=== PATIENT | female | born 1960 | race Caucasian/White ===

== ENCOUNTER 2017-05-04 10:23 | Observation (INO) ==
[2017-05-04] MEDS ORDERED: Aspirin 81 MG TAB.CHEW PO STA (10:34)
[2017-05-04] MEDS: Nitroglycerin 0.4 MG TAB.SUBL SL PRN ×3 (10:50→11:03)
[2017-05-04 10:56] LABS: Basophils # 0.1 K/mcL (0.0-0.2); Eosinophils # 0.1 K/mcL (0.0-0.6); Eosinophils % 1.2 %; Hematocrit 41.6 % (35.3-44.9); Immature Granulocytes % 0.1 % (0-4); Lymphocytes # 3.1 K/mcL (0.6-4.6); Lymphocytes % 44.5 %; Mean Corpuscular HGB Conc 33.7 g/dL (31.6-35.5); Mean Corpuscular Hemoglobin 29.4 pg (28.0-33.3); Mean Corpuscular Volume 87.4 fL (83.0-100.0); Mean Platelet Volume 10.2 fL (9.4-12.4); Monocytes # 0.7 K/mcL (0.0-1.3); Monocytes % 9.4 %; Platelet Count 321 K/mcL (140-400); Red Blood Count 4.76 M/mcL (3.82-4.97); Red Cell Distribution Width 12.6 % (11.5-14.5); Segmented Neutrophils % 43.8 %
[2017-05-04 11:00] LABS: Prothrombin Time 10.4 Seconds (9.4-12.1)
[2017-05-04 11:03] LABS: Activated Partial Thrombo Time 31.6 Seconds (26.0-36.0)
[2017-05-04 11:07] LABS: BUN/Creatinine Ratio 19 (6-26); Blood Urea Nitrogen 15 mg/dL (7-20); Calcium 10.4 mg/dL (8.6-10.8); Carbon Dioxide 26 mEq/L (19-29); Chloride 102 mEq/L (98-109); Glucose 98 mg/dL (70-99); Osmolality,Calculated 287 (280-300); Potassium 3.5 mEq/L (3.5-4.5); Sodium 138 mEq/L (136-145); eGFR For African Americans > 60 (> 60); eGFR For Non-African Americans > 60 (> 60)
--- NOTE | 2017-05-04 11:44 | Emergency Department Note ---
Disposition Clinical Impression: Chest pain Qualifiers: Chest pain type: unspecified Qualified Code(s): R07.9 - Chest pain, unspecified Disposition: Admitted As Inpatient Chest Pain HPI - General Chief Complaint: ED Chest Pain Stated Complaint: CP Time Seen by Provider: 05/04/17 10:29 Source: patient Limitations: no limitations Vital Signs Reviewed: Yes Nursing Notes Reviewed: Yes - History of Present Illness HPI Narrative: Patient with past medical history of hypertension hyperlipidemia and TIA presents for evaluation of chest pain. Chest pain started 20 minutes prior to arrival. Patient describes chest pain is in the center of her chest and a pressure. Patient states that she took nitroglycerin at home with her for relief. Patient states she has nitroglycerin from previous TIA. She states that she has not had previous heart attack. Patient did fail a stress test 3 years ago and received cardiac catheter without receiving a stent. Unknown amount of cardiac disease. Patient has associated shortness of breath no diaphoresis or nausea. Severity scale (1-10): 6 - Related Data Home Medications Medication Instructions Recorded Confirmed Cranberry 400 mg PO DAILY 04/20/16 05/04/17 Losartan/Hydrochlorothiazide 1 each PO DAILY 04/20/16 05/04/17 [Hyzaar 100-25 Tablet] Omeprazole [PriLOSEC] 40 mg PO DAILY 04/20/16 05/04/17 Aspirin 325 mg PO DAILY 11/17/16 05/04/17 Cyclobenzaprine HCl 5 mg PO HS PRN 11/17/16 05/04/17 Ranitidine HCl [Heartburn Relief] 150 mg PO DAILY 01/20/17 05/04/17 Allergies Allergy/AdvReac Type Severity Reaction Status Date / Time codeine AdvReac Rash Verified 05/04/17 12:07 metronidazole [From Flagyl] AdvReac Rash Verified 05/04/17 12:07 Sulfa (Sulfonamide AdvReac See Verified 05/04/17 12:07 Antibiotics) Comments Review of Systems: CONSTITUTIONAL: No weight loss, fever, chills, weakness or fatigue. HEENT: Eyes: No visual changes. Ears, Nose, Throat: No hearing loss, difficulty talking or unable to swallow. SKIN: No rash or itching. CARDIOVASCULAR: Chest pain RESPIRATORY: Shortness of breath No cough or sputum. GASTROINTESTINAL: No anorexia, nausea, vomiting or diarrhea. No abdominal pain or blood. GENITOURINARY: No burning on urination or hematuria. NEUROLOGICAL: No headache, dizziness, syncope, paralysis, ataxia, numbness or tingling in the extremities. No change in bowel or bladder control. MUSCULOSKELETAL: No muscle pain, back pain, joint pain or stiffness. Chest Pain PMH - Past Medical History Medical history: Reports: CVA, GERD, hyperlipidemia, hypertension, TIA, other Surgical history: Reports: angioplasty/stent, appendectomy, cholecystectomy, colectomy, other Psychiatric history: Reports: no psych history - Social History Smoking Status: Never smoker Alcohol use: Reports: none Drug use: Reports: none Physical Exam General appearance: NAD, conversant Eyes: anicteric sclerae, moist conjunctivae; PERRL HENT: Atraumatic; oropharynx clear with moist mucous membranes and no mucosal ulcerations Neck: Normal inspection; Trachea midline; FROM, supple Lungs: CTA, with normal respiratory effort and no intercostal retractions CV: RRR, no MRGs Abdomen: Soft, non-tender; no rebound or gaurding Extremities: No peripheral edema or extremity lymphadenopathy Skin: Normal temperature; no rash, ulcers or lesions Psych: Appropriate mood and affect Neuro: alert and oriented to person, place and time - General Limitations: no limitations General appearance: alert Course - Reevaluation(s) Reevaluation #1: Patient's chest pain improved from a 7 to 2 with nitroglycerin. Patient will be admitted for further observation and serial troponin and cardiac testing. Reevaluation #2: After admission to the hospitalist service. The patient is been complaining of worsening pain. She describes a sharp pain in her chest. Patient is uncomfortable on the cot and will undergo a dissection study. I have called the radiologist to try to get a PE as well as dissection study. They will do their best. D-dimer negative. - Consultations Consultation #1: Discussed with the hospitalist. Patient accepted for admission. Vital Signs Temperature 98.0 F 05/04/17 10:25 Pulse Rate 86 05/04/17 10:25 Respiratory Rate 14 05/04/17 10:25 Blood Pressure 143/82 05/04/17 10:25 O2 Sat by Pulse Oximetry 97 05/04/17 10:25 Temperature 98.0 F 05/04/17 10:25 Pulse Rate 70 05/04/17 14:48 Respiratory Rate 16 05/04/17 14:48 Blood Pressure 99/63 05/04/17 14:48 O2 Sat by Pulse Oximetry 99 05/04/17 14:48 Oxygen Delivery Oxygen Delivery Room Air Chest Pain - Medical Records Medical records reviewed: Yes I reviewed the patient's medical records. - Lab Data Lab results reviewed: Yes I reviewed the patient's lab results. Result diagrams: 05/04/17 10:44 05/04/17 10:44 Lab Results 05/04/17 05/04/17 05/04/17 Range/Units 10:44 10:44 10:44 WBC 6.9 (4.3-11.1) K/mcL RBC 4.76 (3.82-4.97) M/mcL Hgb 14.0 (11.5-15.4) g/dL Hct 41.6 (35.3-44.9) % MCV 87.4 (83.0-100.0) fL MCH 29.4 (28.0-33.3) pg MCHC 33.7 (31.6-35.5) g/dL RDW 12.6 (11.5-14.5) % Plt Count 321 (140-400) K/mcL MPV 10.2 (9.4-12.4) fL Immature Gran % 0.1 (0-4) % Seg Neutrophils % 43.8 % Lymphocytes % 44.5 % Monocytes % 9.4 % Eosinophils % 1.2 % Basophils % 1.0 % Neutrophils # 3.0 (1.6-8.9) K/mcL Lymphocytes # 3.1 (0.6-4.6) K/mcL Monocytes # 0.7 (0.0-1.3) K/mcL Eosinophils # 0.1 (0.0-0.6) K/mcL Basophils # 0.1 (0.0-0.2) K/mcL PT (9.4-12.1) Seconds INR APTT (26.0-36.0) Seconds D-Dimer (0-500) ng/mLFEU Sodium 138 (136-145) mEq/L Potassium 3.5 (3.5-4.5) mEq/L Chloride 102 (98-109) mEq/L Carbon Dioxide 26 (19-29) mEq/L BUN 15 (7-20) mg/dL Creatinine 0.81 (0.57-1.11) mg/dL Est GFR ( Amer) > 60 (> 60) Est GFR (Non-Af Amer) > 60 (> 60) BUN/Creatinine Ratio 19 (6-26) Glucose 98 (70-99) mg/dL Calculated Osmolality 287 (280-300) Calcium 10.4 (8.6-10.8) mg/dL Troponin I 0.00 (0-0.03) ng/mL Triglycerides (< 150) mg/dL Cholesterol (< 200) mg/dL LDL Cholesterol, Calc (0-99) mg/dL VLDL Cholesterol, Calc (< 31) mg/dL HDL Cholesterol (40-59) mg/dL Cholesterol/HDL Ratio (0-4.9) 05/04/17 05/04/17 05/04/17 Range/Units 10:44 13:06 13:06 WBC (4.3-11.1) K/mcL RBC (3.82-4.97) M/mcL Hgb (11.5-15.4) g/dL Hct (35.3-44.9) % MCV (83.0-100.0) fL MCH (28.0-33.3) pg MCHC (31.6-35.5) g/dL RDW (11.5-14.5) % Plt Count (140-400) K/mcL MPV (9.4-12.4) fL Immature Gran % (0-4) % Seg Neutrophils % % Lymphocytes % % Monocytes % % Eosinophils % % Basophils % % Neutrophils # (1.6-8.9) K/mcL Lymphocytes # (0.6-4.6) K/mcL Monocytes # (0.0-1.3) K/mcL Eosinophils # (0.0-0.6) K/mcL Basophils # (0.0-0.2) K/mcL PT 10.4 (9.4-12.1) Seconds INR 1.0 APTT 31.6 (26.0-36.0) Seconds D-Dimer < 215 (0-500) ng/mLFEU Sodium (136-145) mEq/L Potassium (3.5-4.5) mEq/L Chloride (98-109) mEq/L Carbon Dioxide (19-29) mEq/L BUN (7-20) mg/dL Creatinine (0.57-1.11) mg/dL Est GFR ( Amer) (> 60) Est GFR (Non-Af Amer) (> 60) BUN/Creatinine Ratio (6-26) Glucose (70-99) mg/dL Calculated Osmolality (280-300) Calcium (8.6-10.8) mg/dL Troponin I (0-0.03) ng/mL Triglycerides 302 H (< 150) mg/dL Cholesterol 311 H (< 200) mg/dL LDL Cholesterol, Calc 203 H (0-99) mg/dL VLDL Cholesterol, Calc 60 H (< 31) mg/dL HDL Cholesterol 48 (40-59) mg/dL Cholesterol/HDL Ratio 6.5 H (0-4.9) - Radiology Data Radiology results reviewed: Yes I reviewed the patient's radiology results. - EKG Data EKG attestation: Yes I reviewed and interpreted this EKG. EKG results narrative: EKG shows sinus rhythm with ventricular rate of 82. IN 120. QRS 84. QTC 362. Patient has no significant ST elevation or depression. Patient has lateral lead T-wave flattening in comparison to previous EKG of 04/13/16. Attestation Statement - Attestation Attestation: I examined this patient and my medical decision-making was reviewed with the Resident Physician. I agree with the documented findings, disposition and treatment plan as described except to the extent set forth below. Patient presents to the etiology component chest pain. Onset this morning while she was at work. Radiating into her neck. She received some nitroglycerin which made her chest about a resolving pain in her neck. Examination shows her no distress with clear lungs. Heart regular rate and rhythm. Plan. EKGs with some mild nonspecific changes. Troponin is negative. Patient had worsening pain after getting some morphine. We did reevaluate her. Repeat EKG was done and was not worsened. She has no ST elevations. We sent her for dissection protocol study. There is no dissection. She has no PE. She has been discussed with cardiology who is seeing her in consult. Admitted to medicine.
[2017-05-04] MEDS ORDERED: Ondansetron 4 MG/2 ML VIAL IVP ONE (11:51)
[2017-05-04] MEDS ORDERED: *HR* Morphine 2 MG/ML SYRINGE IVP ONE ×2 (11:51→12:00)
[2017-05-04] MEDS ORDERED: Nitroglycerin 1 INCH/GM PACKET TP ONE (12:36)
[2017-05-04] MEDS ORDERED: *HR* FentaNYL (PF) 100 MCG/2 ML VIAL IVP ONE (12:43)
[2017-05-04] MEDS ORDERED: *HR* Morphine 2 MG/ML SYRINGE IVP PRN (12:50)
[2017-05-04] MEDS ORDERED: Ondansetron 4 MG/2 ML VIAL IVP PRN ×2 (12:50→15:55)
[2017-05-04] MEDS ORDERED: Naloxone 0.4 MG/ML INJ IVP PRN (12:50)
[2017-05-04] MEDS ORDERED: 0.9 % Sodium Chloride 1,000 ML IVC SCH (13:00)
--- NOTE | 2017-05-04 13:14 | Internal Med History&Physical ---
<Ridge Finch - Last Filed: 05/04/17 16:50> Date of Encounter: 05/04/17 Time of Encounter: 12:57 Assessment and Plan (1) Unstable angina Current visit: Yes Status: Acute Unstable angina which began approximately 20 minutes prior to arrival. She is continuing to endorse midsternal sharp/crushing chest pain with radiation to left jaw and left neck. Due to recurrent angina despite medical therapy she is being admitted for observation. She has multiple risk factors including aspirin use in the last 24 hours, hypertension, HLD, continued angina and family history of CAD. ANALISA score of 3 elixir at intermediate risk and she may need coronary revascularization. She remains hemodynamically stable. Consult cardiology for further recommendations regarding coronary vascularization and/or the need to start heparin drip: Consider adding statin TTE now to assess for etiology of ACS Stress test in the morning NPO now until further recommendations CTA chest now d/t continued SOB and discomfort r/o PE CT chest d/t continued SOB and discomfort r/o aortic dissection hold off on heparin gtt and nitro gtt until results of CT and CTA Continuous tele, and SPO2 monitoring CBC, BMP, in the am (2) HTN (hypertension) Current visit: Yes Status: Acute Systolic blood pressure was slightly elevated on arrival. However, at this time is currently stable. Continue to monitor, restart losartan/ hydrochlorothiazide at home dose Qualifiers: Hypertension type: essential hypertension Qualified Code(s): I10 - Essential (primary) hypertension (3) HLD (hyperlipidemia) Current visit: Yes Status: Acute History of, check lipid panel now,she is currently not taking a statin, h she would likely benefit. Cardiology is consulted regarding further recommendations. Qualifiers: Hyperlipidemia type: unspecified Qualified Code(s): E78.5 - Hyperlipidemia , unspecified Internal Medicine - H&P: HPI Chief complaint: CP R/O ACS Admitted From: Home Plans for Post Hospital Care: Home History of present illness: Ms. Goldstein is a 57 year old female with a PMH of hypertension HLD and TIA presents with a C/o Chest pain started 20 minutes prior to arrival. She describes non-exertional chest pain that is midsternal, and crushing/sharp with radiation to the left neck and left jaw. Pain is scored 6/10. She also states that she is short of breath. She took a nitro at home and reports relief but the CP has returned. While in the ED she was given SL nitro and morphine with relief, but as of this assessment the CP has returned and is again /. EGK show no ST elevation or t-wave inversions. No prior h/o DE. She denies diaphoresis or nausea as well as extremity pain or swelling. Last workup was in 2013 and included a LHC revealing at that time, minimal 1 vessel disease and a TTE with EF 60% and no wall motion abnormalities. D/t unstable angina she is being admitted for further workup and monitoring. Past Med Surg Social Fam HX - Past Medical History Medical history: CVA, GERD, hyperlipidemia, hypertension, TIA, other Psychiatric history: no psych history - Past Surgical History Surgical History: angioplasty/stent, appendectomy, cholecystectomy, colectomy, other - Social History Smoking Status: Never smoker Smokeless Tobacco Status: No Alcohol use: none Drug use: none Internal Medicine - H&P: Meds Cranberry 400 mg PO DAILY 04/20/16 [History] Losartan/Hydrochlorothiazide [Hyzaar 100-25 Tablet] 1 each PO DAILY 04/20/16 [ History] Omeprazole [PriLOSEC] 40 mg PO DAILY 04/20/16 [History] Aspirin 325 mg PO DAILY 11/17/16 [History] Cyclobenzaprine HCl 5 mg PO HS PRN 11/17/16 [History] Ranitidine HCl [Heartburn Relief] 150 mg PO DAILY 01/20/17 [History] 3 Allergy/AdvReac Type Severity Reaction Status Date / Time codeine AdvReac Rash Verified 05/04/17 12:07 metronidazole [From Flagyl] AdvReac Rash Verified 05/04/17 12:07 Sulfa (Sulfonamide AdvReac See Verified 05/04/17 12:07 Antibiotics) Comments All Systems PM: A 10-system review of systems was performed and is negative for pertinent findings except as documented above in the HPI. - Constitutional Constitutional: no chills, no excessive sweating, no fatigue, no fever(s), no weight gain - Cardiovascular Cardiovascular ROS IM: chest pain, dyspnea, dyspnea on exertion, no diaphoresis , no edema, no irregular heart rhythm, no lightheadedness, no orthopnea, no palpitations, no syncope - Respiratory Respiratory: dyspnea, dyspnea on exertion, no cough, no hemoptysis, no wheezing , no pain on inspiration, no chest congestion, no pain with cough - Gastrointestinal Gastrointestinal: no abdominal pain, no diarrhea, no hematemesis, no hematochezia, no melena, no nausea, no vomiting - Genitourinary Genitourinary: no change in urinary stream, no dysuria, no flank pain, no hematuria - Musculoskeletal Musculoskeletal ROS IM: no numbness, no tingling - Integumentary Integumentary IM: no rash, no unusual bruising - Neurological Neurological ROS: no confusion, no convulsions, no focal weakness, no numbness, no tingling, no tremor(s) - Constitutional Vitals: Temp Pulse Resp BP Pulse Ox 98.0 F 94 20 134/67 98 05/04/17 10:25 05/04/17 12:45 05/04/17 12:45 05/04/17 12:45 05/04/17 12:45 General appearance: Present: cooperative, mild distress, A&O X 3, answers questions appropriately - Head Head exam: Present: atraumatic, normocephalic - Neck Neck exam general surgery: Present: supple, trachea midline. Absent: lymphadenopathy - Respiratory Respiratory exam: Present: CTAB. Absent: accessory muscle use, rales, rhonchi, wheezes - Cardiovascular Cardiovascular exam: Present: RRR, +S1, +S2. Absent: diastolic murmur, gallop, rubs, systolic murmur - GI/Abdominal GI/Abdominal exam: Present: normal bowel sounds, soft, no peritoneal signs. Absent: distended, tenderness - Extremities Exam Extremities exam: Present: warm, radial pulses palpable and symmetrical. Absent : calf tenderness, cyanotic, pedal edema - Neurological Exam Neurological exam: Present: oriented X3. Absent: pronater drift, facial droop, speech deficit - Skin Skin exam: Present: dry, intact Internal Med - H&P Results - Labs CBC & Chem 7: 05/04/17 10:44 05/04/17 10:44 - EKG Data -: EKG Interpreted by Myself EKG shows normal: sinus rhythm Rate: normal - EKG Data Prior EKG available for review: yes When compared to previous EKG: there is no significant change Interpretation IM: normal EKG EKG comments: 05/04/17 13:17 NSR - Diagnostic Studies Chest x-ray Status: image reviewed by me Additional comments: no acute cardiopulmonary process <[email or web address] cohen - Last Filed: 05/05/17 07:39> Date of Encounter: 05/04/17 Internal Medicine - H&P: HPI History of present illness: Ms. Goldstein is a 57 year old female All Systems PM: A 10-system review of systems was performed and is negative for pertinent findings except as documented above in the HPI. - Constitutional Vitals: Temp Pulse Resp BP Pulse Ox 98.0 F 70 16 107/68 97 05/05/17 06:32 05/05/17 06:32 05/05/17 06:32 05/05/17 06:32 05/05/17 06:32 Internal Med - H&P Results - Labs CBC & Chem 7: 05/05/17 04:14 05/05/17 04:14 Labs: Short CBC 05/05/17 Range/Units 04:14 WBC 8.1 (4.3-11.1) K/mcL Hgb 11.5 D (11.5-15.4) g/dL Hct 34.6 L (35.3-44.9) % Plt Count 260 (140-400) K/mcL Neutrophils # 4.3 (1.6-8.9) K/mcL BMP 05/05/17 04:14 Sodium 139 Potassium 3.5 Chloride 104 Carbon Dioxide 26 BUN 10 Creatinine 0.72 Glucose 101 H Calcium 9.3 Cardiac Enzymes 05/04/17 05/04/17 Range/Units 16:19 21:49 Troponin I 0.00 0.01 (0-0.03) ng/mL - Impressions ITS Impressions Chest CTA 05/04/17 13:23 IMPRESSION: Unremarkable CTA of the chest, abdomen and pelvis. No evidence of aortic aneurysm or dissection. No significant atherosclerotic disease. No evidence of pulmonary embolism. No acute process in the chest. No acute abnormality in the abdomen or pelvis. No evidence of acute bowel abnormality or bowel obstruction. Diverticulosis without evidence of acute diverticulitis. D/ / 05/04/2017 14:50:33 Selvin Reece MD / nicole Interpreting Provider: Selvin Reece MD Abdomen/Pelvis CTA 05/04/17 13:24 IMPRESSION: Unremarkable CTA of the chest, abdomen and pelvis. No evidence of aortic aneurysm or dissection. No significant atherosclerotic disease. No evidence of pulmonary embolism. No acute process in the chest. No acute abnormality in the abdomen or pelvis. No evidence of acute bowel abnormality or bowel obstruction. Diverticulosis without evidence of acute diverticulitis. D/ / 05/04/2017 14:50:33 Selvin Reece MD / nicole Interpreting Provider: Selvin Reece MD - Attending Attestation 57y/o F who presented with chest pain which seemed to be cardiac in nature. Initiate treatment per ACS guidelines. Will consult cardio for further recommendations. We will resume home meds as deemed appropriated. I have examined patient and agree with RADIATION PHYSICIST documentation.
[2017-05-04 13:28] LABS: Chol/HDL Ratio 6.5 (0-4.9)
--- NOTE | 2017-05-04 15:20 | Cardiology Consult Note ---
Date of Encounter: 05/04/17 Time of Encounter: 15:00 Assessment and Plan (1) Chest pain Current Visit: Yes Status: Acute Per cardiology: -Presented with chest pain while walking/workiing. -Reports associated shortness of breath and diaphoresis. -Reports increased fatigue over the past couple of weeks. -Has been having intermittent chest pain for the past few months, releived with nitro. -Admits to current 2/10 chest heaviness. -Troponin negative x1. -ECG with SR, non-specific ST changes. -LHC 2013 with 20% mid RCA stenosis, otherwise all other arteries angiographically free of disease. -TTE 2013 with LVEF 60%, no segmental wall motion abnormalities. -Stress echo 2013 negative. -Will trend troponins. -Will make NPO after midnight for possible stress test in am. -WIll start statin and beta saroj. Of note, patient take ASA 325mg for history of CVA. Qualifiers: Chest pain type: unspecified Qualified Code(s): R07.9 - Chest pain, unspecified Discussion w patient/family: The assessment and plan as outlined above was discussed with the patient and/or family members who expressed understanding and agreement. All questions were answered. Thank you for involving us in the care of your patient. Please call with any questions. Discussed and reviewed with . History of Present Illness Consult date: 05/04/17 Requesting physician: Ridge Finch Consult reason: chest pain Chief complaint: chest pain History of present illness: Ms. Goldstein is a 57 year old female with a relevant past medical history of CVA 2008, HTN, GERD. Patient presented to [facility] with complaints of chest pain. Patient states that she was at work, walking when she had sudden onset of midsternal chest pain that radiated to bilateral jaws. Patient reports associated shortness of breath and diaphoresis. Patient denies aggravating factors. Reports pain lessened with nitro. Patient reports over the past few months, has had intermittent exertional chest pain that has been relieved by nitro. Patient states the most nitro she has had to take at home has been 2, prior to this episode. Patient reports has been more fatigued over the past couple of weeks also. States is able to do her normal activties, just is more tired after. Reports has been excercising by going to [employer] and has had intermittent chest pain at [facility]. Past Med Surg Social Fam HX - Past Medical History Attestation: Yes The following information was validated with the patient. Source: patient, old records reviewed, obtained from family Medical history: CVA, GERD, hyperlipidemia, hypertension, TIA, other Psychiatric history: no psych history - Past Surgical History Surgical History: angioplasty/stent, appendectomy, cholecystectomy, colectomy, other - Social History Smoking Status: Never smoker Smokeless Tobacco Status: No Alcohol use: none Drug use: none Medications and Allergies Cranberry 400 mg PO DAILY 04/20/16 [History] Losartan/Hydrochlorothiazide [Hyzaar 100-25 Tablet] 1 each PO DAILY 04/20/16 [ History] Omeprazole [PriLOSEC] 40 mg PO DAILY 04/20/16 [History] Aspirin 325 mg PO DAILY 11/17/16 [History] Cyclobenzaprine HCl 5 mg PO HS PRN 11/17/16 [History] Ranitidine HCl [Heartburn Relief] 150 mg PO DAILY 01/20/17 [History] 3 Allergy/AdvReac Type Severity Reaction Status Date / Time codeine AdvReac Rash Verified 05/04/17 12:07 metronidazole [From Flagyl] AdvReac Rash Verified 05/04/17 12:07 Sulfa (Sulfonamide AdvReac See Verified 05/04/17 12:07 Antibiotics) Comments All Systems Review: A 10-system review of systems was performed and is negative for pertinent findings except as documented above in the HPI. - Constitutional Constitutional: fatigue - Cardiovascular Cardiovascular: chest pain with exertion, dyspnea on exertion Physical Examination Vital Signs, Last 4 Hours Temp Pulse Resp BP Pulse Ox 05/04/17 15:17 97.1 F L 70 16 106/60 97 05/04/17 14:48 70 16 99/63 99 05/04/17 13:47 82 20 124/67 98 General: Conversant, No Apparent Distress HEENT: Atraumatic, Normocephaly, Mucus Membranes Moist Neck: No JVD, Normal carotid pulses Cardiac: Reg Rate and Rhythm, Normal S1 and S2, No Murmur Lungs: Normal Breath Sounds, No Wheeze, Rales, Rhonchi Neuro: Alert and responsive, No focal deficits noted Abdomen: Soft, Non-Tender Skin: No rashes noted on visualized skin Musculoskeletal: No Chest Wall Tenderness Extremities: No Clubbing, No Cyanosis, No Edema, Normal Pulses Results 05/04/17 10:44 05/04/17 10:44 Lab Results Impressions Chest X-Ray 05/04/17 10:29 IMPRESSION: No acute cardiopulmonary disease. D/ / Viola Rinaldi MD / Viola Rinaldi MD Interpreting Provider: Viola Rinaldi MD Chest CTA 05/04/17 13:23 IMPRESSION: Unremarkable CTA of the chest, abdomen and pelvis. No evidence of aortic aneurysm or dissection. No significant atherosclerotic disease. No evidence of pulmonary embolism. No acute process in the chest. No acute abnormality in the abdomen or pelvis. No evidence of acute bowel abnormality or bowel obstruction. Diverticulosis without evidence of acute diverticulitis. D/ / 05/04/2017 14:50:33 Selvin Reece MD / nicole Interpreting Provider: Selvin Reece MD Abdomen/Pelvis CTA 05/04/17 13:24 IMPRESSION: Unremarkable CTA of the chest, abdomen and pelvis. No evidence of aortic aneurysm or dissection. No significant atherosclerotic disease. No evidence of pulmonary embolism. No acute process in the chest. No acute abnormality in the abdomen or pelvis. No evidence of acute bowel abnormality or bowel obstruction. Diverticulosis without evidence of acute diverticulitis. D/ / 05/04/2017 14:50:33 Selvin Reece MD / nicole Interpreting Provider: Selvin Reece MD Active Medications Aspirin (Aspirin) 325 mg PO DAILY [facility] Stop: 11/04/17 09:01 Atorvastatin Calcium (Lipitor) 40 mg PO HS [facility] Stop: 11/03/17 21:01 Cyclobenzaprine HCl (Flexeril) 5 mg PO HS PRN PRN Reason: Muscle Spasm Famotidine (Pepcid) 20 mg PO 0630 [facility] Stop: 11/04/17 06:31 HCTZ/Losartan Potassium (Hyzaar 50/12.5) 2 each PO DAILY [facility] Stop: 11/04/17 09:01 Sodium Chloride (0.9 % Sodium Chloride) 1,000 mls @ 100 mls/hr IVC .Q10H [facility] Stop: 05/04/17 22:59 Last Admin: 05/04/17 15:24 Dose: 100 mls/hr Metoprolol Tartrate (Lopressor) 12.5 mg PO BID [facility] Stop: 11/03/17 21:01 Morphine Sulfate (Morphine Sulfate) 2 mg IVP Q4HR PRN PRN Reason: Chest Pain Stop: 11/03/17 12:51 Last Admin: 05/04/17 13:39 Dose: 2 mg Naloxone HCl (Narcan) 0.4 mg IVP Q2MIN PRN PRN Reason: Opioid Reversal Stop: 11/03/17 12:51 Nitroglycerin (Nitroglycerin) 0.4 mg SL Q5MIN PRN PRN Reason: Chest Pain Stop: 11/03/17 10:35 Last Admin: 05/04/17 11:03 Dose: 0.4 mg Omeprazole (Prilosec) 40 mg PO DAILY [facility] Stop: 11/04/17 09:01 Ondansetron HCl (Zofran) 4 mg IVP Q8HR PRN PRN Reason: Nausea And Vomiting Stop: 11/03/17 12:51 Laboratory Tests 05/04/17 05/04/17 05/04/17 10:44 10:44 10:44 Hgb 14.0 Creatinine 0.81 Troponin I 0.00 Triglycerides Cholesterol LDL Cholesterol, Calc HDL Cholesterol 05/04/17 13:06 Hgb Creatinine Troponin I Triglycerides 302 H Cholesterol 311 H LDL Cholesterol, Calc 203 H HDL Cholesterol 48 - Imaging and Cardiology Chest Xray: report reviewed Stress Test: report reviewed Echo: report reviewed Cardiac cath: report reviewed - EKG Interpretation EKG results cardiology: personally reviewed (ECG with SR, non-specific ST changes), other (Currently being placed on telemetry.) Consult Discharge Plan - Plan Referrals: Franny Gonzalez MD [Primary Care Provider] -
--- NOTE | 2017-05-04 15:49 | Electrocardiograph Report ---
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
[2017-05-04] MEDS: *HR* Promethazine 25 MG/ML VIAL IVP PRN (17:42)
[2017-05-04] MEDS ORDERED: Melatonin 3 MG TABLET PO PRN (21:43)
[2017-05-04] MEDS: Acetaminophen 325 MG TABLET PO PRN (22:22)
[2017-05-05 05:06] LABS: BUN/Creatinine Ratio 14 (6-26); Basophils # 0.1 K/mcL (0.0-0.2); Basophils % 0.7 %; Blood Urea Nitrogen 10 mg/dL (7-20); Calcium 9.3 mg/dL (8.6-10.8); Carbon Dioxide 26 mEq/L (19-29); Chloride 104 mEq/L (98-109); Eosinophils # 0.1 K/mcL (0.0-0.6); Eosinophils % 1.7 %; Glucose 101 mg/dL (70-99); Hematocrit 34.6 % (35.3-44.9); Immature Granulocytes % 0.2 % (0-4); Lymphocytes # 2.8 K/mcL (0.6-4.6); Lymphocytes % 34.4 %; Mean Corpuscular HGB Conc 33.2 g/dL (31.6-35.5); Mean Corpuscular Hemoglobin 29.7 pg (28.0-33.3); Mean Corpuscular Volume 89.4 fL (83.0-100.0); Monocytes # 0.8 K/mcL (0.0-1.3); Monocytes % 9.4 %; Neutrophils # 4.3 K/mcL (1.6-8.9); Osmolality,Calculated 287 (280-300); Platelet Count 260 K/mcL (140-400); Potassium 3.5 mEq/L (3.5-4.5); Red Blood Count 3.87 M/mcL (3.82-4.97); Red Cell Distribution Width 12.9 % (11.5-14.5); Segmented Neutrophils % 53.6 %; Sodium 139 mEq/L (136-145); eGFR For African Americans > 60 (> 60); eGFR For Non-African Americans > 60 (> 60)
[2017-05-05 05:07] LABS: Hemoglobin 11.5 g/dL (11.5-15.4)
[2017-05-05] MEDS: Famotidine 20 MG TABLET PO SCH (06:06)
[2017-05-05] MEDS: Aspirin 325 MG TABLET PO SCH (07:53)
--- NOTE | 2017-05-05 08:09 | Cardiology Progress Note ---
Date of Encounter: 05/05/17 Time of Encounter: 08:10 Assessment and Plan (1) Chest pain Current Visit: Yes Status: Acute Per cardiology: Presented with chest pain while walking/working. Reports associated shortness of breath and diaphoresis. Reports increased fatigue over the past couple of weeks. Has been having intermittent chest pain for the past few months, relieved with nitro. CP free now. Troponins negative x 3. Echo pending. Patient and prefer to proceed with stress test this morning. We'll proceed with exercise nuclear stress test. Further recommendations after echo and stress test. Qualifiers: Chest pain type: unspecified Qualified Code(s): R07.9 - Chest pain, unspecified (2) CAD (coronary artery disease) Current Visit: Yes Status: Chronic Per Cardiology: LHC 2013 with 20% mid RCA stenosis, otherwise all other arteries angiographically free of disease. TTE 2013 with LVEF 60%, no segmental wall motion abnormalities. Stress echo 2013 negative. On asa, statin, BB, ARB. Qualifiers: Coronary Disease-Associated Artery/Lesion type: [place] artery [place] vs. transplanted heart: [place] heart Associated angina: angina presence unspecified Qualified Code(s): I25.10 - Atherosclerotic heart disease of [place] coronary artery without angina pectoris Discussion w patient/family: The assessment and plan as outlined above was discussed with the patient and/or family members who expressed understanding and agreement. All questions were answered. Thank you for involving us in the care of your patient. Please call with any questions. Subjective Principal diagnosis: CP Interval history: Patient seen today with at bedside. Currently denies any chest pain, shortness of breath, palpitations. Denies any concerns or complaints. Objective Vital Signs, Last 4 Hours Temp Pulse Resp BP Pulse Ox 05/05/17 06:32 98.0 F 70 16 107/68 97 General: Conversant, No Apparent Distress HEENT: Atraumatic, Normocephaly, Mucus Membranes Moist Neck: No JVD, Normal carotid pulses Cardiac: Reg Rate and Rhythm, Normal S1 and S2, No Murmur Lungs: Normal Breath Sounds, No Wheeze, Rales, Rhonchi Neuro: Alert and responsive, No focal deficits noted Abdomen: Soft, Non-Tender Skin: No rashes noted on visualized skin Musculoskeletal: No Chest Wall Tenderness Extremities: No Clubbing, No Cyanosis, No Edema, Normal Pulses Results 05/05/17 04:14 12/14/17 04:14 Lab Results Laboratory Tests 05/04/17 05/04/17 05/04/17 10:44 16:19 21:49 Troponin I 0.00 0.00 0.01 Impressions Chest X-Ray 05/04/17 10:29 IMPRESSION: No acute cardiopulmonary disease. D/ / Viola Rinaldi MD / Viola Rinaldi MD Interpreting Provider: Viola Rinaldi MD Chest CTA 05/04/17 13:23 IMPRESSION: Unremarkable CTA of the chest, abdomen and pelvis. No evidence of aortic aneurysm or dissection. No significant atherosclerotic disease. No evidence of pulmonary embolism. No acute process in the chest. No acute abnormality in the abdomen or pelvis. No evidence of acute bowel abnormality or bowel obstruction. Diverticulosis without evidence of acute diverticulitis. D/ / 05/04/2017 14:50:33 Selvin Reece MD / nicole Interpreting Provider: Selvin Reece MD Abdomen/Pelvis CTA 05/04/17 13:24 IMPRESSION: Unremarkable CTA of the chest, abdomen and pelvis. No evidence of aortic aneurysm or dissection. No significant atherosclerotic disease. No evidence of pulmonary embolism. No acute process in the chest. No acute abnormality in the abdomen or pelvis. No evidence of acute bowel abnormality or bowel obstruction. Diverticulosis without evidence of acute diverticulitis. D/ / 05/04/2017 14:50:33 Selvin Reece MD / nicole Interpreting Provider: Selvin Reece MD Active Medications Acetaminophen (Tylenol) 650 mg PO Q6HR PRN PRN Reason: Headache Stop: 11/03/17 21:44 Last Admin: 05/04/17 22:22 Dose: 650 mg Aspirin (Aspirin) 325 mg PO DAILY [facility] Stop: 11/04/17 09:01 Last Admin: 05/05/17 07:53 Dose: 325 mg Atorvastatin Calcium (Lipitor) 40 mg PO HS [facility] Stop: 11/03/17 21:01 Last Admin: 05/04/17 21:28 Dose: 40 mg Cyclobenzaprine HCl (Flexeril) 5 mg PO HS PRN PRN Reason: Muscle Spasm Famotidine (Pepcid) 20 mg PO 0630 [facility] Stop: 11/04/17 06:31 Last Admin: 05/05/17 06:06 Dose: 20 mg HCTZ/Losartan Potassium (Hyzaar 50/12.5) 2 each PO DAILY [facility] Stop: 11/04/17 09:01 Last Admin: 05/05/17 07:54 Dose: 2 each Melatonin (Melatonin) 6 mg PO HS PRN PRN Reason: Insomnia Stop: 11/03/17 21:44 Last Admin: 05/04/17 22:21 Dose: 6 mg Metoprolol Tartrate (Lopressor) 12.5 mg PO BID [facility] Stop: 11/03/17 21:01 Last Admin: 05/04/17 21:28 Dose: 12.5 mg Morphine Sulfate (Morphine Sulfate) 2 mg IVP Q4HR PRN PRN Reason: Chest Pain Stop: 11/03/17 12:51 Last Admin: 05/04/17 13:39 Dose: 2 mg Naloxone HCl (Narcan) 0.4 mg IVP Q2MIN PRN PRN Reason: Opioid Reversal Stop: 11/03/17 12:51 Nitroglycerin (Nitroglycerin) 0.4 mg SL Q5MIN PRN PRN Reason: Chest Pain Stop: 11/03/17 10:35 Last Admin: 05/04/17 11:03 Dose: 0.4 mg Omeprazole (Prilosec) 40 mg PO DAILY [facility] Stop: 11/04/17 09:01 Last Admin: 05/05/17 07:53 Dose: 40 mg Ondansetron HCl (Zofran) 4 mg IVP Q6HR PRN PRN Reason: Nausea And Vomiting Stop: 11/03/17 12:51 Promethazine HCl (Phenergan) 12.5 mg IVP Q6HR PRN PRN Reason: Nausea And Vomiting Stop: 11/03/17 15:56 Last Admin: 05/04/17 17:42 Dose: 12.5 mg - Imaging and Cardiology Stress Test: pending Echo: pending Consult Discharge Plan - Plan Referrals: Franny Gonzalez MD [Primary Care Provider] -
[2017-05-05] MEDS: *HR* Promethazine 25 MG/ML VIAL IVP PRN (08:10)
[2017-05-05] MEDS ORDERED: Losartan/HCTZ 50-12.5 TABLET PO SCH (09:00)
--- NOTE | 2017-05-05 11:58 | Event Note ---
Date of Encounter: 05/05/17 Time of Encounter: 11:50 - Cardiology Event Note Patient seen during exercise nuclear stress test with concerns of chest pain, unable to achieve target heart rate. She has preserved EF on echo per Dr. Payan. Discussed and reviewed with Dr. Payan, recommend patient to consider Lexiscan versus left heart catheterization. Patient and prefer to proceed with catheterization for further evaluation. Further recommendations after cath.
--- NOTE | 2017-05-05 14:48 | Internal Med Progress Note ---
Date of Encounter: 05/05/17 Time of Encounter: 12:30 - Assessment and plan (1) Chest pain Current Visit: Yes Status: Acute Assessment and plan: Presented with severe chest pain with associated shortness of breath. Chest CTA negative for pulmonary embolism. Serial troponins negative. EKG without acute ST changes. She experienced severe chest pain during stress test; cardiology recommended Lexiscan versus left heart catheterization and she opted for left heart catheterization. Continue to monitor on telemetry. Further management pending [facility] results. Cont home ASA Qualifiers: Chest pain type: unspecified Qualified Code(s): R07.9 - Chest pain, unspecified (2) CVA (cerebral vascular accident) Current Visit: Yes Status: Acute Assessment and plan: patient reports history of CVA over 5 years ago. Details unclear but she apparently received TPA and was treated at [facility]. Appears neurologically intact. Continue home ASA. Qualifiers: CVA mechanism: embolism Laterality of affected vessel: unspecified Qualified Code(s): I63.119 - Cerebral infarction due to embolism of unspecified vertebral artery (3) HTN (hypertension) Current Visit: Yes Status: Acute Assessment and plan: per hx however BP has been intermittently hypotensive while inpatient with SBP' s and 90s to low 100s. Decrease home Hyzaar. Monitor BP and titrate PRN Qualifiers: Hypertension type: essential hypertension Qualified Code(s): I10 - Essential (primary) hypertension (4) HLD (hyperlipidemia) Current Visit: Yes Status: Acute Assessment and plan: LDL 203; statin added. Will need repeat lipid panel in 3-6 months with PCP Qualifiers: Hyperlipidemia type: unspecified Qualified Code(s): E78.5 - Hyperlipidemia , unspecified (5) DVT prophylaxis Current Visit: Yes Status: Acute Assessment and plan: heparin - Subjective Interval history: Seen and examined at bedside. Patient is new to me, information obtained from chart review and patient report. Patient says she is having intermittent chest pain with associated shortness of breath. Symptoms worse with exertion and relieved with rest. She is aware of plan for left heart catheterization later on this evening. Does not appear acutely toxic all my exam. - Constitutional Vitals: Temp Pulse Resp BP Pulse Ox 98.0 F 70 16 107/68 97 05/05/17 06:32 05/05/17 06:32 05/05/17 06:32 05/05/17 06:32 05/05/17 06:32 General appearance: Present: cooperative, mild distress, A&O X 3, answers questions appropriately - Head Head exam: Present: atraumatic, normocephalic - Eye Eye exam: Present: PERRL, conjuntiva pink, sclera anicteric Pupils: Present: PERRL - Neck Neck exam general surgery: Present: supple, trachea midline. Absent: lymphadenopathy - Respiratory Respiratory exam: Present: CTAB. Absent: accessory muscle use, rales, rhonchi, wheezes - Cardiovascular Cardiovascular exam: Present: RRR, +S1, +S2. Absent: diastolic murmur, gallop, rubs, systolic murmur - GI/Abdominal GI/Abdominal exam: Present: normal bowel sounds, soft, no peritoneal signs. Absent: distended, tenderness - Extremities Exam Extremities exam: Present: warm, radial pulses palpable and symmetrical. Absent : calf tenderness, cyanotic, pedal edema - Neurological Exam Neurological exam: Present: CN II-XII intact, oriented X3, no focal deficits. Absent: pronater drift, facial droop, speech deficit - Skin Skin exam: Present: dry, intact Internal Medicine: Result - Labs CBC & Chem 7: 05/05/17 04:14 05/05/17 04:14 Labs: Short CBC 05/05/17 Range/Units 04:14 WBC 8.1 (4.3-11.1) K/mcL Hgb 11.5 D (11.5-15.4) g/dL Hct 34.6 L (35.3-44.9) % Plt Count 260 (140-400) K/mcL Neutrophils # 4.3 (1.6-8.9) K/mcL BMP 05/05/17 04:14 Sodium 139 Potassium 3.5 Chloride 104 Carbon Dioxide 26 BUN 10 Creatinine 0.72 Glucose 101 H Calcium 9.3 Cardiac Enzymes 05/04/17 05/04/17 Range/Units 16:19 21:49 Troponin I 0.00 0.01 (0-0.03) ng/mL - ABG Interpretation ABG results: PT/INR, D-dimer PT 10.4 Seconds (9.4-12.1) 05/04/17 10:44 D-Dimer < 215 ng/mLFEU (0-500) 05/04/17 13:06 - Impressions Impressions Chest CTA 05/04/17 13:23 IMPRESSION: Unremarkable CTA of the chest, abdomen and pelvis. No evidence of aortic aneurysm or dissection. No significant atherosclerotic disease. No evidence of pulmonary embolism. No acute process in the chest. No acute abnormality in the abdomen or pelvis. No evidence of acute bowel abnormality or bowel obstruction. Diverticulosis without evidence of acute diverticulitis. D/ / 05/04/2017 14:50:33 Selvin Reece MD / nicole Interpreting Provider: Selvin Reece MD Abdomen/Pelvis CTA 05/04/17 13:24 IMPRESSION: Unremarkable CTA of the chest, abdomen and pelvis. No evidence of aortic aneurysm or dissection. No significant atherosclerotic disease. No evidence of pulmonary embolism. No acute process in the chest. No acute abnormality in the abdomen or pelvis. No evidence of acute bowel abnormality or bowel obstruction. Diverticulosis without evidence of acute diverticulitis. D/ / 05/04/2017 14:50:33 Selvin Reece MD / nicole Interpreting Provider: Selvin Reece MD Consult Discharge Plan - Plan Referrals: Franny Gonzalez MD [Primary Care Provider] -
[2017-05-05] MEDS ORDERED: 0.9 % Sodium Chloride 1,000 ML ONE ×2 (15:31→16:17)
[2017-05-05] MEDS ORDERED: Nitroglycerin 1,000 MCG/10 ML VIAL IV ONE (15:31)
[2017-05-05] MEDS ORDERED: *HR* Heparin 10,000 UNIT/10 ML VIAL ONE (15:31)
[2017-05-05] MEDS ORDERED: *HR* Midazolam HCl 2 MG/2 ML VIAL ONE ×3 (16:16→16:54)
--- NOTE | 2017-05-05 16:22 | Pre-Sedation Evaluation ---
Pre-sedation evaluation - Pre-sedation checklist Date of procedure: 05/05/17 Procedure: heart cath Recent Vitals: Last Vital Signs Temp 98.8 F 05/05/17 15:09 Pulse 68 05/05/17 15:09 Resp 12 05/05/17 15:09 BP 99/64 05/05/17 15:09 Pulse Ox 93 05/05/17 15:09 H&P (including ROS) documented in medical record: Yes Previous reaction to sedatives/anesthetics: No Dietary Status: NPO after Midnight Airway Assessment: Patient can open mouth completely, TMJ function normal Dentition: No loose teeth or bridges Possible difficult airway: No ASA Classification *see protocol: CLASS III-Severe systemic disease Plan of Care: Pt appropriate candidate for procedure/moderate/conscious sedation , Risks/benefits of procedure/sedation discussed w/ patient/family, If not NPO; Risk of intake outweiged by necessity to perform procedure
[2017-05-05] MEDS ORDERED: Heparin 1,000 UNIT, 0.9 % Sodium Chloride 500 ML INARTERIAL ONE (16:30)
[2017-05-05] MEDS ORDERED: Ondansetron 4 MG/2 ML VIAL ONE (16:32)
--- NOTE | 2017-05-05 16:43 | Electrocardiograph Report ---
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
--- NOTE | 2017-05-05 17:30 | Invasive Diagnostic Lab Proc ---
Name: Bert Goldstein Date of Study: 05/05/2017 Date: 1960 Ht: 61.8in Medical Record#: [id number] Age: 57 Wt: 145.51lb Gender: Female BSA: 1.67 Order #: [id number] BMI: 26.78 Physicians Procedure Physician: Quinn Baum DO Referring MD: Referring MD: Staff Name Position Time In Pao Lopez RT Sw 03:56 PM Haven Peacock RN Cardiopulmonary Supervisor 03:56 PM Viola Barton RN Monitor 03:57 PM [facility], Yoly RT (R) Monitor 04:36 PM Indications Indication Unstable Angina Procedures Performed Procedure L HRT ARTERY/VENTRICLE ANGIO Pre-Procedure Checklist Informed consent is complete signed and on chart. H&P is on chart. ID band is on and ID verified with patient. Patient NPO for procedure The procedure was described for the patient and questions were answered. Blood Pressure: 134/69 ECG is on chart. Rhythm: NSR Plan of Care Patient will tolerate the procedure without complications. Adequate level of comfort will be maintained. Hemodynamics will remain stable Patient will recover from procedure without complications. Respiratory function will be maintained. Cardiac rhythm will remain stable. Patient temperature will be maintained. Patient and/or family have verbalized understanding of the procedure. Patient Education Chief Complaint/Reason for Test: Cardiac Cath Developmental Category: Adult (18-64 years) Developmentally Appropriate for Age: Yes Learning Barriers: None Education Needs: Procedure Education Method: Verbal Information Taught: Cardiac Cath Educational Evaluation: Able to repeat information Intravenous Access Time IV Size Location DC'd Fluid/Drip Rate Units RN 20g 1 05/26" Patent On Arrival Lt Antecubital 0.9NaCl 25 ml/hr Haven Peacock RN Allergies codeine Erythromycin metronidazole Sulfa (Sulfonamide Antibiotics) Vital Signs Time BP (mmHg) HR (bpm) O2 Sat. RR (bpm) LOC 03:56 PM / % 5 = Fully awake and oriented or at pre-proc level 03:56 PM / % 4 = Oriented but drowsy 04:12 PM / % 5 = Fully awake and oriented or at pre-proc level Procedural Medications Time Medication Dose Units Method Given By 03:56 PM Oxygen 2 L/min nasal cannula Haven Peacock RN 04:16 PM Versed 2 mg Intravenous Haven Peacock RN 04:32 PM Zofran 4 mg Intravenous Haven Peacock RN 04:33 PM Versed 1 mg Intravenous Haven Peacock RN 04:36 PM Lidocaine 2% 9 ml Subcutaneous Quinn Baum, 04:50 PM Versed 1 mg Intravenous Haven Peacock RN 04:50 PM Lidocaine 2% 5 ml Subcutaneous Quinn Baum, DO 04:53 PM Versed 1 mg Intravenous Haven Peacock RN ASA Classification: CLASS II- Mild systemic disease (i.e. 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 scoates 03:56 PM Physicember responded and notified patient is ready 15:56 scoates 03:56 PM Time: 15:56 Oxygen on at 2 L/min per nasal cannula by Haven Peacock RN scoates 03:56 PM Time: 15:56 Patient comfortable and pain free: Yes scoates 03:56 PM Time: 15:56LOC: 5 = Fully awake and oriented or at pre-proc level scoates 03:56 PM Pao Lopez RT Position: Sw Time in: 15:56 scoates 03:57 PM Haven Peacock RN Position: Cardiopulmonary Supervisor Time in: 15:56 scoates 03:57 PM Viola Barton RN Position: Monitor Time in: 15:57 scoates 04:12 PM Time: 15:56LOC: 4 = Oriented but drowsy scoates 04:12 PM Time: 15:56 Patient comfortable and pain free: Yes scoates 04:16 PM Patient charges- Angio tray pack, Navilyst 3mm J, Pulse Oximetry and ACIST tubing and transducer scoates 04:16 PM Physician arrived 16:16 scoates 04:16 PM Nikita and lizeth completed scoates 04:16 PM Sign in performed according to hospital policy. scoates 04:16 PM Procedure start 16:16 scoates 04:17 PM Time: 16:16 Versed 2 mg Intravenous Given by Haven Peacock RN scoates 04:17 PM Case Delayed no, inpatient scoates 04:18 PM Hair removed from procedure site in procedure lab using clippers. Bilateral groin prepped with Chloraprep by Haven Peacock RN, safety strap applied then patient was draped. Skin intact. scoates 04:28 PM Time: 16:12 Patient comfortable and pain free: Yes scoates 04:28 PM Time: 16:12LOC: 5 = Fully awake and oriented or at pre-proc level scoates 04:32 PM Time: 16:32 Zofran 4 mg Intravenous Given by Haven Peacock RN scoates 04:33 PM Time: 16:33 Versed 1 mg Intravenous Given by Haven Peacock RN scoates 04:35 PM Time out performed according to hospital policy scoates 04:36 PM Time: 16:36 9 ml Lidocaine 2% to right groin Subcutaneous Given by Quinn Baum DO tsites 04:36 PM Sites, Yoly RT (R) Position: Monitor Time in: 16:36 to Viola Dove RN tsites 04:38 PM Micro-Introducer Kit utilized for sheath placement tsites 04:44 PM Unsuccessful access attempt # 1 into the right Femoral artery. Manual pressure applied to achieve hemostasis.. tsites 04:45 PM Unsuccessful access attempt # 2 into the right Femoral artery. Manual pressure applied to achieve hemostasis.. tsites 04:47 PM Unsuccessful access attempt # 3 into the right Femoral artery. Manual pressure applied to achieve hemostasis.. tsites 04:50 PM Time: 16:50 Versed 1 mg Intravenous Given by Haven Peacock RN tsites 04:50 PM Time: 16:50 5 ml Lidocaine 2% to right groin Subcutaneous Given by Quinn Baum DO tsites 04:52 PM Unsuccessful access attempt # 4 into the right Femoral artery. Manual pressure applied to achieve hemostasis.. tsites 04:53 PM Time: 16:53 Versed 1 mg Intravenous Given by Haven Peacock RN tsites 04:56 PM Unsuccessful access attempt # 5 into the right Femoral artery. Manual pressure applied to achieve hemostasis.. tsites 04:59 PM Access obtained by percutaneous puncture. 5Fr 11cm Cordis Skyla sheath placed in right Femoral vein. [id number] tsites 05:01 PM Access obtained by percutaneous puncture. 6Fr 10cm Terumo Riggins sheath placed in right Femoral artery. [id number] tsites 05:01 PM 6Fr FR 4 catheter inserted over the wire DN tsites 05:02 PM 0.035 145cm Navilyst 3mmJ wire [id number] tsites 05:03 PM Wire removed tsites 05:03 PM Bolus angiogram of left Ventricle complete: hand injection tsites 05:05 PM RCA angiography performed in multiple views. tsites 05:05 PM LCA angiography performed in multiple views. tsites 05:07 PM Lesion found in Mid RCA. Pre Stenosis: 30 Pre ANALISA Flow: tsites 05:07 PM Right Coronary, Right Posterior Descending Arteries with Right Posterolateral and Acute Marginal branches with 30 % stenosis. If graft is supplying this area, 0 % stenosis tsites 05:07 PM Bolus angiogram of right Femoral complete tsites 05:08 PM Procedure completed at 17:08 tsites 05:08 PM Isovue 370 - 200ml,1 Bottle(s) used. tsites 05:08 PM Estimated Blood Loss: minimal tsites 05:08 PM Post ECG NSR tsites 05:08 PM Post Blood Pressure 134/69 tsites 05:08 PM Arterial sheath pulled, Mynx closure device used and was Successful S/N. tsites 05:09 PM 17:08 Post Pulses Bilateral DP & PT 2+ tsites 05:09 PM Information taught Cardiac Cath and Mynx tsites 05:09 PM Education needs Procedure, Plan of Care, and Responsibilities of Patient in Care tsites 05:09 PM Learning barriers :None tsites 05:09 PM Education Methods Verbal tsites 05:09 PM Education evaluation Able to repeat information tsites 05:10 PM Site status No bleeding/hematoma - Rt Groin as reported by Pao Lopez RT at 17:10 tsites 05:10 PM Opsite applied tsites 05:10 PM Plavix, Effient or Brilinta given No tsites 05:10 PM Delay to floor No tsites 05:10 PM Patient out of room: 17:10 tsites 05:11 PM Family placed in consult room. tsites 05:16 PM Venous sheath pulled using manual compression and for 12 minutes by Fabiola Baumann RN tsites 05:19 PM Report given to nati MCCORD Pt taken to 3B Room #14. 17:18 tsites 05:23 PM Site status No bleeding/hematoma - Rt Groin as reported by Fabiola Baumann RN at 17:22 tsites Post Procedure Information Blood Pressure: 134/69 mmHg Rhythm: NSR Post procedural instructions were given Closure Device Time Device Success/Fail 05/05/2017 5:12:00 PM MynxGrip Successful Site Checks Time Location Status Staff Sheath In? Note 05:10 PM Rt Groin No bleeding/hematoma Pao Lopez RT 05:22 PM Rt Groin No bleeding/hematoma Fabiola Baumann RN Pulses Time Site Pre-Procedure Post-Procedure Note Bilateral DP & PT 2+ Bilateral radial 2+ 5:08:00 PM Bilateral DP & PT 2+ Updated by Yoly Sites, RT (R) on 05/05/2017 5:23:51 PM [facility], RT electronically signed on 05/05/2017 5:24:56 PM with status of Final
[2017-05-05] MEDS: Acetaminophen 325 MG TABLET PO PRN (17:59)
[2017-05-05] MEDS: Ibuprofen 600 MG TABLET PO PRN (21:06)
[2017-05-06] MEDS: Famotidine 20 MG TABLET PO SCH (05:39)
[2017-05-06] MEDS: Ibuprofen 600 MG TABLET PO PRN (05:40)
[2017-05-06 05:42] LABS: Hematocrit 37.8 % (35.3-44.9); Hemoglobin 12.3 g/dL (11.5-15.4); Mean Corpuscular HGB Conc 32.5 g/dL (31.6-35.5); Mean Corpuscular Hemoglobin 29.4 pg (28.0-33.3); Mean Corpuscular Volume 90.2 fL (83.0-100.0); Mean Platelet Volume 10.8 fL (9.4-12.4); Platelet Count 266 K/mcL (140-400); Red Blood Count 4.19 M/mcL (3.82-4.97); Red Cell Distribution Width 12.8 % (11.5-14.5)
[2017-05-06 05:55] LABS: BUN/Creatinine Ratio 16 (6-26); Blood Urea Nitrogen 13 mg/dL (7-20); Calcium 9.3 mg/dL (8.6-10.8); Carbon Dioxide 27 mEq/L (19-29); Chloride 104 mEq/L (98-109); Glucose 111 mg/dL (70-99); Osmolality,Calculated 291 (280-300); Potassium 3.8 mEq/L (3.5-4.5); Sodium 140 mEq/L (136-145); eGFR For African Americans > 60 (> 60); eGFR For Non-African Americans > 60 (> 60)
[2017-05-06 07:02] VITALS: BP 116/62
[2017-05-06] MEDS: Aspirin 325 MG TABLET PO SCH (07:33)
--- NOTE | 2017-05-06 08:03 | Discharge Summary ---
Date of Encounter: 05/06/17 Time of Encounter: 07:55 - Discharge Diagnosis (1) CAD (coronary artery disease) Priority: Primary Status: Chronic Comments: per hx. Presented with severe chest pain with associated shortness of breath that occurred while working. CXR non-acute. Chest CTA negative for pulmonary embolism. Serial troponins negative. EKG without acute ST changes. TTE with EF 65%, NWMA, mild diastolic dysfunction. She experienced chest pain during stress test therefore underwent a LHC which showed mild, non-obstructive CAD. Sx 's resolved at time of discharge. Cont medical management with ASA, statin. Defer adding BB to PCP and/or avionics systems repairer as BP soft/borderline. Follow-up outpatient with PCP and Therapist. Qualifiers: Coronary Disease-Associated Artery/Lesion type: robinson artery Lummi vs. transplanted heart: robinson heart Associated angina: with unstable angina Qualified Code(s): I25.110 - Atherosclerotic heart disease of robinson coronary artery with unstable angina pectoris (2) CVA (cerebral vascular accident) Priority: Secondary Status: Chronic Comments: patient reported history of CVA over 5 years ago. Details unclear but apparently received TPA and was treated at [facility]. Neurologically intact, no deficits. Continue home ASA. Qualifiers: CVA mechanism: embolism Laterality of affected vessel: unspecified Qualified Code(s): I63.119 - Cerebral infarction due to embolism of unspecified vertebral artery (3) HTN (hypertension) Priority: Primary Status: Acute Comments: per hx however BP has been intermittently hypotensive while inpatient with SBP' s and 90s to low 100s. BP stable with decreasing home Hyzaar dose. Recommend follow-up with PCP within one week for BP recheck. Qualifiers: Hypertension type: essential hypertension Qualified Code(s): I10 - Essential (primary) hypertension (4) HLD (hyperlipidemia) Priority: Primary Status: Acute Comments: LDL 203; statin added. Follow-up with PCP Qualifiers: Hyperlipidemia type: unspecified Qualified Code(s): E78.5 - Hyperlipidemia , unspecified - Discharge Medications Prescriptions: Atorvastatin [Lipitor] 40 mg PO HS #30 tablet Losartan/HCTZ [Hyzaar 50-12.5 Tablet] 1 each PO DAILY #30 tablet Home Medications: Cranberry 400 mg PO DAILY 04/20/16 [History] Omeprazole [PriLOSEC] 40 mg PO DAILY 04/20/16 [History] Aspirin 325 mg PO DAILY 11/17/16 [History] Cyclobenzaprine HCl 5 mg PO HS PRN 11/17/16 [History] Ranitidine HCl [Heartburn Relief] 150 mg PO DAILY 01/20/17 [History] Atorvastatin [Lipitor] 40 mg PO HS #30 tablet 05/06/17 [Rx] Losartan/HCTZ [Hyzaar 50-12.5 Tablet] 1 each PO DAILY #30 tablet 05/06/17 [Rx] Allergies/Adverse Reactions: 3 Allergy/AdvReac Type Severity Reaction Status Date / Time codeine AdvReac Rash Verified 05/04/17 12:07 metronidazole [From Flagyl] AdvReac Rash Verified 05/04/17 12:07 Sulfa (Sulfonamide AdvReac See Verified 05/04/17 12:07 Antibiotics) Comments Procedures/tests Complete & Pending: Procedures Performed prior 72 hours Category Date Time Status CT angio chest [CT] Stat Cat Scan 05/04/17 13:23 Completed CTA Abdomen/Pelvis [CT angio abdomen pelvis] [CT] Stat Cat Scan 05/04/17 13: 24 Completed CL Cardiac Catheterization [CL] Routine Pickling Solution Maker 05/05/17 11:56 Ordered NM ignacia perf SPECT single [NM] Routine Exams 05/05/17 09:24 Taken SP exercise stress ECG Routine Y 05/05/17 Completed Date of admission: 05/04/17 12:46 Primary care physician: Franny Pritchett Consults: 05/04/17 12:55 Consult to Cardiology [CONS] Routine Comment: Consulting Provider: Cardiology Monica Reason for Consult: Continuous CP 10/30. Will likely need stress in AM. Call Completed: No Discharging clinician: Alisa Carrillo Anticipated date of discharge: 05/06/17 - Patient Status Disposition: Home, Self-Care Condition: Good Functional capacity at discharge: independent ambulation Overall status at discharge: patient is back to baseline - Discharge Instructions Instructions: Coronary Artery Disease (DC), Atorvastatin (By mouth), Hyperlipidemia (DC) Follow Up With: Franny Gonzalez MD [Primary Care Provider] - Additional Instructions: RISK FACTORS: STOP SMOKING: If you smoke, STOP. Smoking or tobacco use significantly increases your risk of heart disease because nicotine causes the arteries to narrow or constrict. It also causes fats to stick to the artery. Your chances of having a heart attack are greatly increased if you continue to smoke. For more information, call the education line for smoking cessation 3-635-EERAPNW EAT A LOW FAT/CHOLESTEROL/SODIUM DIET: This diet may help reduce your chances of having a heart attack. LIFTING: Avoid lifting anything more than 10 pounds for 5-7 days Prior to straining, laughing, sneezing and/or coughing, apply manual pressure directly over insertion site. ACTIVITY: You may walk or climb stairs as tolerated You can resume sexual activity as tolerated In general, you are encouraged to engage in a minimum of 30 minutes or more of moderate intensity physical activity, such as brisk walking, daily or at least 3 -4 times weekly BATHING Do not submerge the site into water (bath tub, hot tub, swimming pool) for 1 week. This can be a source for infection into the blood stream. You may shower after 24 hours SITE CARE: After 24 hours, you may remove the dressing and leave the site open to air. Keep the site clean and dry. Clean gently and pat dry. You can expect bruising and tenderness that gradually resolve within a week or two. Return to work as instructed per your physician Resume driving as instructed per physician Keep all scheduled follow up appointments Resume medications as instructed IMPORTANT: If prescribed a Platelet Aggregation Inhibitor such as, Plavix, Brilinta or Effient: Duration of therapy is minimum one year These medications are often used in combination with Aspirin in prevention of future heart attacks Never discontinue unless consult with your Therapist STROKE (CVA) Risk factors for a stroke are: Age, cigarette smoking, diabetes, excessive alcohol consumption, family history, high blood pressure, overweight, physical inactivity, prior stroke, heart attack, diagnosis of carotid artery stenosis or other artery disease. Warning signs: Sudden numbness or weakness of the face, arm or leg; especially on one side of the body, sudden confusion, trouble speaking or understanding, sudden trouble seeing in one or both eyes, sudden trouble walking, dizziness, loss of balance or coordination, sudden severe headache with no cause. Call 911 or go to the Emergency Room. CONGESTIVE HEART FAILURE: If you have been diagnosed with Congestive Heart Failure (CHF) and your symptoms return, make an appointment with your physician Weigh yourself daily. Notify your physician if you have a weight gain of two or more pounds in one day or five or more pounds in one week. If you experience any difficulty breathing, please call 911 BLEEDING: Although the risk of bleeding is minimal, it can happen. If you have any bleeding from the site, apply firm pressure above the puncture site for 10-15 minutes. If the bleeding does not stop, continue manual pressure and call 911 Contact your physician if: You develop a fever greater than 101 degrees Fahrenheit Your site becomes reddened or has any drainage You have an increase in pain or burning at the site or if a large knot forms at the site. If you experience chest pain, shortness of breath, dizziness, or extreme tiredness, stop the activity and rest. Please notify your physicians office if you experience any of these symptoms and they are not relieved by rest please call 911! - Diet and Activity Activity: increase activity as tolerated, resume usual activities as tolerated Diet: low fat, low cholesterol Interval History: Seen and examined at bedside. Patient says she had an uneventful night and slept well. No recurrence of chest pain or shortness of breath. She is requesting discharge home. Discussed with cardiology and okay to discharge home with outpatient follow-up. Hospital course: See assessment and plan for hospital course. - Time Spent with Patient Total time spent providing and/or coordinating discharge services: - Constitutional Vitals: Temp Pulse Resp BP Pulse Ox 98 F 67 16 116/62 96 05/06/17 07:01 05/06/17 07:01 05/06/17 07:01 05/06/17 07:01 05/06/17 07:01 General appearance: Present: cooperative, A&O X 3, no acute distress, answers questions appropriately - Head Head exam: Present: atraumatic, normocephalic - Eye Eye exam: Present: PERRL, conjuntiva pink, sclera anicteric Pupils: Present: PERRL - Neck Neck exam general surgery: Present: supple, trachea midline. Absent: lymphadenopathy - Respiratory Respiratory exam: Present: CTAB. Absent: accessory muscle use, rales, rhonchi, wheezes - Cardiovascular Cardiovascular exam: Present: RRR, +S1, +S2. Absent: diastolic murmur, gallop, rubs, systolic murmur Additional comments: Right groin s/p LHC site with mild tenderness. No evidence of bleeding, ecchymosis or hematoma. - GI/Abdominal GI/Abdominal exam: Present: normal bowel sounds, soft, no peritoneal signs. Absent: distended, tenderness - Extremities Exam Extremities exam: Present: warm, radial pulses palpable and symmetrical. Absent : calf tenderness, cyanotic, pedal edema - Neurological Exam Neurological exam: Present: CN II-XII intact, oriented X3, no focal deficits. Absent: pronater drift, facial droop, speech deficit - Skin Skin exam: Present: dry, intact
[2017-05-06] MEDS ORDERED: Losartan/HCTZ 50-12.5 TABLET PO SCH (09:00)
--- NOTE | 2017-05-06 09:07 | Cardiology Progress Note ---
Date of Encounter: 05/06/17 Time of Encounter: 08:20 Assessment and Plan (1) Chest pain Current Visit: Yes Status: Deleted Per Cardiology: CP free now. Troponins negative x 3. Echo showed EF 65%, mild diastolic dysfunction, no significant valvular dysfunction, no pulmonary hypertension, NSWMA. Discharge pending. Consider noncardiac causes of chest pain. Follow-up with PCP. Post procedure education provided. All questions answered. Qualifiers: Chest pain type: unspecified Qualified Code(s): R07.9 - Chest pain, unspecified (2) CAD (coronary artery disease) Current Visit: Yes Status: Chronic Per Cardiology: [facility] 2013 with 20% mid RCA stenosis, otherwise all other arteries angiographically free of disease. Current cath showed mid RCA 30% lesion, otherwise normal angiogram. On asa, statin, BB. Qualifiers: Coronary Disease-Associated Artery/Lesion type: craig artery [place] vs. transplanted heart: craig heart Associated angina: with unstable angina Qualified Code(s): I25.110 - Atherosclerotic heart disease of craig coronary artery with unstable angina pectoris Discussion w patient/family: The assessment and plan as outlined above was discussed with the patient and/or family members who expressed understanding and agreement. All questions were answered. Thank you for involving us in the care of your patient. Please call with any questions. Subjective Principal diagnosis: CP Interval history: Patient denies any chest pain or shortness of breath currently. Denies any right groin concerns. Reports pending discharge morning. Objective Vital Signs, Last 4 Hours Temp Pulse Resp BP Pulse Ox 05/06/17 07:01 98 F 67 16 116/62 96 General: Conversant, No Apparent Distress HEENT: Atraumatic, Normocephaly, Mucus Membranes Moist Neck: No JVD, Normal carotid pulses Cardiac: Reg Rate and Rhythm, Normal S1 and S2, No Murmur Lungs: Normal Breath Sounds, No Wheeze, Rales, Rhonchi Neuro: Alert and responsive, No focal deficits noted Abdomen: Soft, Non-Tender Skin: No rashes noted on visualized skin, Other (Right groin site dry and intact , no hematoma, no ecchymosis, no bleeding, right dorsalis pedis and posterior tibial pulses) Musculoskeletal: No Chest Wall Tenderness Extremities: No Clubbing, No Cyanosis, No Edema, Normal Pulses Results 05/06/17 05:00 05/06/17 05:00 Lab Results Laboratory Tests 05/06/17 05:00 Creatinine 0.80 Est GFR (Non-Af Amer) > 60 Active Medications Acetaminophen (Tylenol) 650 mg PO Q6HR PRN PRN Reason: Headache Stop: 11/03/17 21:44 Last Admin: 05/05/17 17:59 Dose: 650 mg Aspirin (Aspirin) 325 mg PO DAILY DICKSON Stop: 11/04/17 09:01 Last Admin: 05/06/17 07:33 Dose: 325 mg Atorvastatin Calcium (Lipitor) 40 mg PO HS DICKSON Stop: 11/03/17 21:01 Last Admin: 05/05/17 20:04 Dose: 40 mg Cyclobenzaprine HCl (Flexeril) 5 mg PO HS PRN PRN Reason: Muscle Spasm Famotidine (Pepcid) 20 mg PO 0630 DICKSON Stop: 11/04/17 06:31 Last Admin: 05/06/17 05:39 Dose: 20 mg HCTZ/Losartan Potassium (Hyzaar 50/12.5) 1 each PO DAILY DICKSON Stop: 11/05/17 09:01 Last Admin: 05/06/17 07:33 Dose: 1 each Ibuprofen (Motrin) 600 mg PO Q8HR PRN; Protocol PRN Reason: Pain Stop: 11/04/17 20:24 Last Admin: 05/06/17 05:40 Dose: 600 mg Melatonin (Melatonin) 6 mg PO HS PRN PRN Reason: Insomnia Stop: 11/03/17 21:44 Last Admin: 05/04/17 22:21 Dose: 6 mg Metoprolol Tartrate (Lopressor) 12.5 mg PO BID DICKSON Stop: 11/03/17 21:01 Last Admin: 05/04/17 21:28 Dose: 12.5 mg Morphine Sulfate (Morphine Sulfate) 2 mg IVP Q4HR PRN PRN Reason: Chest Pain Stop: 11/03/17 12:51 Last Admin: 05/04/17 13:39 Dose: 2 mg Naloxone HCl (Narcan) 0.4 mg IVP Q2MIN PRN PRN Reason: Opioid Reversal Stop: 11/03/17 12:51 Nitroglycerin (Nitroglycerin) 0.4 mg SL Q5MIN PRN PRN Reason: Chest Pain Stop: 11/03/17 10:35 Last Admin: 05/04/17 11:03 Dose: 0.4 mg Omeprazole (Prilosec) 40 mg PO DAILY DICKSON Stop: 11/04/17 09:01 Last Admin: 05/06/17 07:33 Dose: 40 mg Ondansetron HCl (Zofran) 4 mg IVP Q6HR PRN PRN Reason: Nausea And Vomiting Stop: 11/03/17 12:51 Promethazine HCl (Phenergan) 12.5 mg IVP Q6HR PRN PRN Reason: Nausea And Vomiting Stop: 11/03/17 15:56 Last Admin: 05/05/17 08:10 Dose: 12.5 mg - Imaging and Cardiology Cardiac cath: report reviewed Consult Discharge Plan - Plan Instructions: Atorvastatin (By mouth), Coronary Artery Disease (DC), Hyperlipidemia (DC) Additional Instructions: RISK FACTORS: STOP SMOKING: If you smoke, STOP. Smoking or tobacco use significantly increases your risk of heart disease because nicotine causes the arteries to narrow or constrict. It also causes fats to stick to the artery. Your chances of having a heart attack are greatly increased if you continue to smoke. For more information, call the education line for smoking cessation [id number] EAT A LOW FAT/CHOLESTEROL/SODIUM DIET: This diet may help reduce your chances of having a heart attack. LIFTING: Avoid lifting anything more than 10 pounds for 5-7 days Prior to straining, laughing, sneezing and/or coughing, apply manual pressure directly over insertion site. ACTIVITY: You may walk or climb stairs as tolerated You can resume sexual activity as tolerated In general, you are encouraged to engage in a minimum of 30 minutes or more of moderate intensity physical activity, such as brisk walking, daily or at least 3 -4 times weekly BATHING Do not submerge the site into water (bath tub, hot tub, swimming pool) for 1 week. This can be a source for infection into the blood stream. You may shower after 24 hours SITE CARE: After 24 hours, you may remove the dressing and leave the site open to air. Keep the site clean and dry. Clean gently and pat dry. You can expect bruising and tenderness that gradually resolve within a week or two. Return to work as instructed per your physician Resume driving as instructed per physician Keep all scheduled follow up appointments Resume medications as instructed IMPORTANT: If prescribed a Platelet Aggregation Inhibitor such as, Plavix, Brilinta or Effient: Duration of therapy is minimum one year These medications are often used in combination with Aspirin in prevention of future heart attacks Never discontinue unless consult with your [employer] STROKE (CVA) Risk factors for a stroke are: Age, cigarette smoking, diabetes, excessive alcohol consumption, family history, high blood pressure, overweight, physical inactivity, prior stroke, heart attack, diagnosis of carotid artery stenosis or other artery disease. Warning signs: Sudden numbness or weakness of the face, arm or leg; especially on one side of the body, sudden confusion, trouble speaking or understanding, sudden trouble seeing in one or both eyes, sudden trouble walking, dizziness, loss of balance or coordination, sudden severe headache with no cause. Call 911 or go to the Emergency Room. CONGESTIVE HEART FAILURE: If you have been diagnosed with Congestive Heart Failure (CHF) and your symptoms return, make an appointment with your physician Weigh yourself daily. Notify your physician if you have a weight gain of two or more pounds in one day or five or more pounds in one week. If you experience any difficulty breathing, please call 911 BLEEDING: Although the risk of bleeding is minimal, it can happen. If you have any bleeding from the site, apply firm pressure above the puncture site for 10-15 minutes. If the bleeding does not stop, continue manual pressure and call 911 Contact your physician if: You develop a fever greater than 101 degrees Fahrenheit Your site becomes reddened or has any drainage You have an increase in pain or burning at the site or if a large knot forms at the site. If you experience chest pain, shortness of breath, dizziness, or extreme tiredness, stop the activity and rest. Please notify your physicians office if you experience any of these symptoms and they are not relieved by rest please call 911! Referrals: Franny Gonzalez MD [Primary Care Provider] - (Office will call with an appointment time and date.) Prescriptions: Atorvastatin [Lipitor] 40 mg PO HS #30 tablet Losartan/HCTZ [Hyzaar 50-12.5 Tablet] 1 each PO DAILY #30 tablet
== END 2017-05-06 09:17 | disposition home or self-care (01) ==
LOC: 3BNU 10:23 → EMEROO 10:23 → 3BNU 14:51
PROVIDERS: ADMIT Registered Nurse; ATTEND Registered Nurse

== ENCOUNTER 2021-09-16 09:18 | Inpatient (IN) ==
[2021-09-16 09:49] LABS: Basophils # 0.1 K/mcL (0.0-0.2); Basophils % 1.1 %; Eosinophils # 0.1 K/mcL (0.0-0.6); Eosinophils % 1.8 %; Hematocrit 39.7 % (35.3-44.9); Hemoglobin 13.6 g/dL (11.5-15.4); Immature Granulocytes % 0.3 % (0-4); Lymphocytes # 2.2 K/mcL (0.6-4.6); Lymphocytes % 35.6 %; Mean Corpuscular HGB Conc 34.3 g/dL (31.6-35.5); Mean Corpuscular Hemoglobin 30.2 pg (28.0-33.3); Mean Corpuscular Volume 88.2 fL (83.0-100.0); Mean Platelet Volume 10.1 fL (9.4-12.4); Monocytes # 0.5 K/mcL (0.0-1.3); Neutrophils # 3.2 K/mcL (1.6-8.9); Platelet Count 309 K/mcL (140-400); Red Cell Distribution Width 12.4 % (11.5-14.5); Segmented Neutrophils % 53.2 %; White Blood Count 6.1 K/mcL (4.3-11.1)
[2021-09-16] MEDS ORDERED: Aminophylline 125 MG/30 ML SYRINGE IVP ONE (10:02)
[2021-09-16] MEDS ORDERED: Aspirin 81 MG TAB.CHEW PO ONE (10:03)
[2021-09-16 10:10] LABS: BUN/Creatinine Ratio 16 (6-26); Blood Urea Nitrogen 12 mg/dL (8-23); Calcium 9.8 mg/dL (8.6-10.3); Carbon Dioxide 25 mEq/L (23-29); Chloride 102 mEq/L (98-107); Glucose 147 mg/dL (70-105); Osmolality,Calculated 284 (280-300); Potassium 3.7 mEq/L (3.5-5.1); Sodium 136 mEq/L (136-145); Troponin I < 0.03 ng/mL (< 0.04); eGFR For African Americans > 60 (> 60); eGFR For Non-African Americans > 60 (> 60)
[2021-09-16] MEDS ORDERED: Pantoprazole 40 MG VIAL IVP ONE (10:14)
[2021-09-16] MEDS ORDERED: Ondansetron 4 MG/2 ML VIAL IVP PRN ×3 (10:15→17:33)
[2021-09-16] MEDS ORDERED: Isovue-370 500 ML BOTTLE IVP ONE (10:21)
[2021-09-16] MEDS: 0.9 % Sodium Chloride 1,000 ML IVC SCH ×2 (10:32→23:45)
[2021-09-16 11:00] LABS: Prothrombin Time 10.9 Seconds (9.4-12.1)
[2021-09-16 11:03] LABS: Activated Partial Thrombo Time 35.4 Seconds (26.0-36.0)
[2021-09-16] MEDS ORDERED: Nitroglycerin 1 INCH/GM PACKET ONE (11:13)
[2021-09-16] MEDS ORDERED: ISOVUE-370 200 ML INFUS..BTL ONE (11:50)
[2021-09-16] MEDS ORDERED: 0.9 % Sodium Chloride 2,000 ML ONE (11:50)
[2021-09-16] MEDS ORDERED: *HR* Heparin 10,000 UNIT/10 ML VIAL ONE ×2 (11:50→12:30)
[2021-09-16] MEDS ORDERED: Heparin 1,000 UNITS/500 mL 500 ML ONE ×2 (11:50→12:45)
[2021-09-16] MEDS ORDERED: Nitroglycerin 1,000 MCG/5 ML VIAL IV ONE (11:50)
[2021-09-16] MEDS ORDERED: *HR* Midazolam HCl 2 MG/2 ML VIAL ONE ×2 (11:54→12:37)
[2021-09-16] MEDS ORDERED: *HR* FentaNYL (PF) 100 MCG/2 ML VIAL ONE ×2 (11:54→12:37)
[2021-09-16] MEDS ORDERED: Naloxone 0.4 MG/ML INJ IVP PRN (12:04)
[2021-09-16] MEDS ORDERED: *HR* Ticagrelor 90 MG TABLET ONE (12:42)
[2021-09-16] MEDS ORDERED: *HR* Atropine Sulfate 1 MG/10 ML SYRINGE ONE (12:47)
[2021-09-16] MEDS ORDERED: Tirofiban 12.5 MG/250ML 12.5 MG/250 ML BAG ONE (12:53)
[2021-09-16] MEDS ORDERED: Nitroglycerin 0.4 MG TAB.SUBL SL PRN (14:01)
[2021-09-16] MEDS ORDERED: Fluticasone Propionate Nasal 50 MCG/SPRAY BOTTLE NS PRN (14:13)
[2021-09-16] MEDS ORDERED: Morphine Sulfate 2 MG/ML SYRINGE IVP ONE (14:33)
[2021-09-16] MEDS ORDERED: *HR* Dextrose 50 % in Water (Syg) 50 ML SYRINGE IVP PRN (14:36)
[2021-09-16] MEDS ORDERED: Dextrose 4 GM Chewable Tablets PO PRN ×2 (14:36)
[2021-09-16] MEDS ORDERED: D5% in Water 1,000 ML IVC PRN (14:36)
[2021-09-16 15:55] LABS: Estimated Average Glucose 143 mg/dl; Hemoglobin A1C 6.6 %
[2021-09-16] MEDS ORDERED: Nitroglycerin 1 INCH/GM PACKET TP SCH (16:00)
[2021-09-16] MEDS ORDERED: Perflutren Lipid Microsphere 1.3 ML in 0.9 % Sodium Chloride 8.7 ML IVP PRN (16:28)
[2021-09-16] MEDS: Insulin LISPRO 300 UNITS/3 ML VIAL SUBQ SCH (17:04)
[2021-09-16] MEDS ORDERED: *HR* Promethazine 25 MG/ML VIAL IM PRN (17:32)
[2021-09-16] MEDS: *HR* Heparin 5,000 UNIT/ML VIAL SQ SCH (17:56)
[2021-09-16] MEDS ORDERED: Insulin LISPRO 300 UNITS/3 ML VIAL SUBQ SCH (21:00)
[2021-09-16] MEDS: *HR* Ticagrelor 90 MG TABLET PO SCH (21:56)
[2021-09-17 03:45] LABS: Hematocrit 34.2 % (35.3-44.9)
[2021-09-17 03:46] LABS: Basophils % 0.3 %; Eosinophils # 0.1 K/mcL (0.0-0.6); Eosinophils % 0.6 %; Hematocrit 34.5 % (35.3-44.9); Hemoglobin 11.6 g/dL (11.5-15.4); Immature Granulocytes % 0.3 % (0-4); Lymphocytes # 1.8 K/mcL (0.6-4.6); Lymphocytes % 14.9 %; Mean Corpuscular HGB Conc 33.6 g/dL (31.6-35.5); Mean Corpuscular Hemoglobin 30.3 pg (28.0-33.3); Mean Corpuscular Volume 90.1 fL (83.0-100.0); Mean Platelet Volume 10.6 fL (9.4-12.4); Monocytes # 0.9 K/mcL (0.0-1.3); Monocytes % 7.4 %; Neutrophils # 9.3 K/mcL (1.6-8.9); Platelet Count 289 K/mcL (140-400); Red Blood Count 3.83 M/mcL (3.82-4.97); Red Cell Distribution Width 12.7 % (11.5-14.5); Segmented Neutrophils % 76.5 %; White Blood Count 12.1 K/mcL (4.3-11.1)
[2021-09-17 04:02] LABS: BUN/Creatinine Ratio 14 (6-26); Blood Urea Nitrogen 10 mg/dL (8-23); Calcium 8.6 mg/dL (8.6-10.3); Carbon Dioxide 23 mEq/L (23-29); Chloride 106 mEq/L (98-107); Glucose 109 mg/dL (70-105); Magnesium 1.9 mg/dL (1.6-2.6); Osmolality,Calculated 286 (280-300); Phosphorous 3.2 mg/dL (2.7-4.5); Potassium 3.6 mEq/L (3.5-5.1); Sodium 138 mEq/L (136-145); eGFR For African Americans > 60 (> 60); eGFR For Non-African Americans > 60 (> 60)
[2021-09-17 04:03] LABS: BUN/Creatinine Ratio 14 (6-26); Blood Urea Nitrogen 10 mg/dL (8-23); eGFR For African Americans > 60 (> 60); eGFR For Non-African Americans > 60 (> 60)
[2021-09-17] MEDS: *HR* Heparin 5,000 UNIT/ML VIAL SQ SCH (05:07)
[2021-09-17 06:41] VITALS: BP 128/74; PULSE 87; TEMP 98; O2SAT 94
[2021-09-17] MEDS: Insulin LISPRO 300 UNITS/3 ML VIAL SUBQ SCH (07:37)
[2021-09-17] MEDS ORDERED: Perflutren Lipid Microsphere 1.3 ML in 0.9 % Sodium Chloride 8.7 ML IVP PRN (07:59)
[2021-09-17] MEDS ORDERED: Acetaminophen 325 MG TABLET PO ONE (08:51)
[2021-09-17] MEDS ORDERED: hydroCHLOROthiazide 25 MG TABLET PO SCH (09:00)
[2021-09-17] MEDS ORDERED: Aspirin 81 MG TAB.CHEW PO SCH (09:00)
[2021-09-17] MEDS ORDERED: Isosorbide MONOnitrate (24 HR) 30 MG TAB.ER.24H PO SCH (09:00)
[2021-09-17] MEDS ORDERED: Thyroid (Amour) 30 MG TABLET PO SCH ×2 (09:00)
[2021-09-17] MEDS: *HR* Ticagrelor 90 MG TABLET PO SCH (09:04)
== END 2021-09-17 11:56 | disposition home or self-care (01) | DRG 247 ==
LOC: EMEROOARM 09:18 → 2ANU 09:18 → 3BNU 12:09 → SUATTDRO 14:21
PROVIDERS: ADMIT Internal Medicine; ATTEND Internal Medicine

== ENCOUNTER 2021-09-22 08:59 | Observation (INO) ==
[2021-09-22] MEDS ORDERED: Isovue-370 500 ML BOTTLE IVP ONE (09:05)
[2021-09-22] MEDS ORDERED: *HR* FentaNYL (PF) 100 MCG/2 ML VIAL IVP ONE (09:24)
[2021-09-22] MEDS ORDERED: Ondansetron ODT 4 MG TAB.RAPDIS SL ONE (10:23)
[2021-09-22] MEDS: Nitroglycerin 0.4 MG TAB.SUBL SL SCH ×2 (10:56→13:19)
[2021-09-22 11:20] LABS: Basophils # 0.1 K/mcL (0.0-0.2); Basophils % 0.6 %; Eosinophils # 0.2 K/mcL (0.0-0.6); Eosinophils % 1.4 %; Hematocrit 39.7 % (35.3-44.9); Hemoglobin 13.6 g/dL (11.5-15.4); Immature Granulocytes % 0.6 % (0-4); Lymphocytes # 2.5 K/mcL (0.6-4.6); Lymphocytes % 19.8 %; Mean Corpuscular HGB Conc 34.3 g/dL (31.6-35.5); Mean Corpuscular Hemoglobin 30.7 pg (28.0-33.3); Mean Corpuscular Volume 89.6 fL (83.0-100.0); Mean Platelet Volume 10.5 fL (9.4-12.4); Monocytes # 1.1 K/mcL (0.0-1.3); Monocytes % 8.7 %; Neutrophils # 8.6 K/mcL (1.6-8.9); Platelet Count 395 K/mcL (140-400); Red Blood Count 4.43 M/mcL (3.82-4.97); Red Cell Distribution Width 12.6 % (11.5-14.5); Segmented Neutrophils % 68.9 %; White Blood Count 12.5 K/mcL (4.3-11.1)
[2021-09-22 11:48] LABS: BUN/Creatinine Ratio 15 (6-26); Blood Urea Nitrogen 13 mg/dL (8-23); Carbon Dioxide 24 mEq/L (23-29); Chloride 100 mEq/L (98-107); Glucose 112 mg/dL (70-105); Osmolality,Calculated 279 (280-300); Potassium 4.4 mEq/L (3.5-5.1); Sodium 134 mEq/L (136-145); Troponin I 0.03 ng/mL (< 0.04); eGFR For African Americans > 60 (> 60); eGFR For Non-African Americans > 60 (> 60)
[2021-09-22] MEDS ORDERED: Naloxone 0.4 MG/ML INJ IVP PRN (13:24)
[2021-09-22] MEDS ORDERED: Nitroglycerin 0.4 MG TAB.SUBL SL PRN (13:31)
[2021-09-22] MEDS ORDERED: Fluticasone Propionate Nasal 50 MCG/SPRAY BOTTLE NS PRN (13:31)
[2021-09-22] MEDS ORDERED: Morphine Sulfate 2 MG/ML SYRINGE IVP PRN (13:33)
[2021-09-22] MEDS: Ondansetron 4 MG/2 ML VIAL IVP PRN (14:21)
[2021-09-22] MEDS: Melatonin 3 MG TABLET PO SCH (20:53)
[2021-09-22] MEDS: *HR* Ticagrelor 90 MG TABLET PO SCH (20:54)
[2021-09-23] MEDS: Ondansetron 4 MG/2 ML VIAL IVP PRN ×2 (03:09→12:34)
[2021-09-23] MEDS ORDERED: Acetaminophen 325 MG TABLET PO ONE (03:15)
[2021-09-23 06:08] LABS: Basophils # 0.1 K/mcL (0.0-0.2); Basophils % 0.6 %; Eosinophils # 0.1 K/mcL (0.0-0.6); Eosinophils % 1.2 %; Hematocrit 36.5 % (35.3-44.9); Hemoglobin 12.5 g/dL (11.5-15.4); Immature Granulocytes % 0.6 % (0-4); Lymphocytes # 2.2 K/mcL (0.6-4.6); Lymphocytes % 18.6 %; Mean Corpuscular HGB Conc 34.2 g/dL (31.6-35.5); Mean Corpuscular Volume 90.6 fL (83.0-100.0); Mean Platelet Volume 9.9 fL (9.4-12.4); Monocytes # 1.1 K/mcL (0.0-1.3); Monocytes % 9.4 %; Neutrophils # 8.2 K/mcL (1.6-8.9); Platelet Count 342 K/mcL (140-400); Red Blood Count 4.03 M/mcL (3.82-4.97); Red Cell Distribution Width 12.7 % (11.5-14.5); Segmented Neutrophils % 69.6 %; White Blood Count 11.8 K/mcL (4.3-11.1)
[2021-09-23 06:33] LABS: BUN/Creatinine Ratio 18 (6-26); Blood Urea Nitrogen 17 mg/dL (8-23); Calcium 9.3 mg/dL (8.6-10.3); Carbon Dioxide 24 mEq/L (23-29); Chloride 101 mEq/L (98-107); Glucose 152 mg/dL (70-105); Osmolality,Calculated 283 (280-300); Potassium 4.1 mEq/L (3.5-5.1); Sodium 134 mEq/L (136-145); eGFR For African Americans > 60 (> 60); eGFR For Non-African Americans 59 (> 60)
[2021-09-23] MEDS: Thyroid (Amour) 30 MG TABLET PO SCH (08:13)
[2021-09-23] MEDS: hydroCHLOROthiazide 25 MG TABLET PO SCH (08:14)
[2021-09-23] MEDS: Aspirin 81 MG TAB.CHEW PO SCH (08:14)
[2021-09-23] MEDS: *HR* Ticagrelor 90 MG TABLET PO SCH ×2 (08:15→21:52)
[2021-09-23] MEDS ORDERED: Acetaminophen 325 MG TABLET PO PRN (08:22)
[2021-09-23] MEDS ORDERED: THYROID PORK 15 MG PO SCH (09:00)
[2021-09-23] MEDS ORDERED: 0.9 % Sodium Chloride 1,000 ML ONE ×2 (15:35→16:47)
[2021-09-23] MEDS ORDERED: *HR* Heparin 10,000 UNIT/10 ML VIAL ONE ×2 (16:47→17:03)
[2021-09-23] MEDS ORDERED: Heparin 1,000 UNITS/500 mL 500 ML ONE (16:47)
[2021-09-23] MEDS ORDERED: *HR* FentaNYL (PF) 100 MCG/2 ML VIAL ONE (16:47)
[2021-09-23] MEDS ORDERED: *HR* Midazolam HCl 5 MG/5 ML VIAL IVP ONE (16:47)
[2021-09-23] MEDS ORDERED: ISOVUE-370 200 ML INFUS..BTL ONE (16:48)
[2021-09-23] MEDS ORDERED: Nitroglycerin 1,000 MCG/5 ML VIAL IV ONE (16:48)
[2021-09-23] MEDS ORDERED: Ondansetron 4 MG/2 ML VIAL ONE (16:53)
[2021-09-23] MEDS ORDERED: Metoclopramide 10 MG/2 ML VIAL IVP ONE (19:03)
[2021-09-23 19:54] LABS: Hematocrit 37.3 % (35.3-44.9); Hemoglobin 12.5 g/dL (11.5-15.4)
[2021-09-23] MEDS: Melatonin 3 MG TABLET PO SCH (21:52)
[2021-09-24 05:40] LABS: Basophils # 0.1 K/mcL (0.0-0.2); Basophils % 0.7 %; Eosinophils # 0.1 K/mcL (0.0-0.6); Eosinophils % 1.1 %; Hematocrit 35.9 % (35.3-44.9); Hemoglobin 12.1 g/dL (11.5-15.4); Immature Granulocytes % 0.5 % (0-4); Lymphocytes # 2.7 K/mcL (0.6-4.6); Lymphocytes % 27.6 %; Mean Corpuscular HGB Conc 33.7 g/dL (31.6-35.5); Mean Corpuscular Hemoglobin 30.5 pg (28.0-33.3); Mean Corpuscular Volume 90.4 fL (83.0-100.0); Mean Platelet Volume 10.2 fL (9.4-12.4); Monocytes # 1.2 K/mcL (0.0-1.3); Monocytes % 12.2 %; Neutrophils # 5.7 K/mcL (1.6-8.9); Platelet Count 347 K/mcL (140-400); Red Blood Count 3.97 M/mcL (3.82-4.97); Red Cell Distribution Width 12.6 % (11.5-14.5); Segmented Neutrophils % 57.9 %; White Blood Count 9.8 K/mcL (4.3-11.1)
[2021-09-24] MEDS: Ondansetron 4 MG/2 ML VIAL IVP PRN (06:01)
[2021-09-24 06:19] LABS: BUN/Creatinine Ratio 18 (6-26); Blood Urea Nitrogen 18 mg/dL (8-23); Carbon Dioxide 22 mEq/L (23-29); Chloride 102 mEq/L (98-107); Potassium 3.3 mEq/L (3.5-5.1); Sodium 137 mEq/L (136-145); eGFR For African Americans > 60 (> 60)
[2021-09-24 06:20] LABS: Calcium 9.2 mg/dL (8.6-10.3); Glucose 108 mg/dL (70-105); Osmolality,Calculated 286 (280-300); eGFR For Non-African Americans 58 (> 60)
[2021-09-24 07:19] VITALS: BP 128/75; PULSE 72; TEMP 98.8; O2SAT 94
[2021-09-24] MEDS ORDERED: Metoclopramide 10 MG/2 ML VIAL IVP ONE (08:55)
[2021-09-24] MEDS ORDERED: CRANBERRY 400 MG PO SCH (09:00)
[2021-09-24] MEDS ORDERED: Loratadine 10 MG TABLET PO SCH (09:00)
[2021-09-24] MEDS ORDERED: NON-FORMULARY MEDICATION 1 EACH EACH (Biotin 5 MG Tablet) PO SCH (09:00)
[2021-09-24] MEDS ORDERED: Cholecalciferol (D-3) 1,000 UNIT (25MCG) TABLET PO SCH (09:00)
[2021-09-24] MEDS ORDERED: Pantoprazole 40 MG VIAL IVP ONE (09:04)
[2021-09-24] MEDS: Thyroid (Amour) 30 MG TABLET PO SCH (09:35)
[2021-09-24] MEDS: *HR* Ticagrelor 90 MG TABLET PO SCH (09:41)
[2021-09-24] MEDS: hydroCHLOROthiazide 25 MG TABLET PO SCH (09:42)
[2021-09-24] MEDS: Aspirin 81 MG TAB.CHEW PO SCH (09:46)
== END 2021-09-24 11:29 | disposition home or self-care (01) ==
LOC: 3BNU 08:59 → EMEROOARM 08:59 → SUATTDRO 12:34 → 3BNU 13:15
PROVIDERS: ADMIT Internal Medicine; ATTEND Family Medicine